=== PATIENT | female | born 1950 ===

== ENCOUNTER 2022-03-06 05:37 | Day surgery (SDC) | payer OTHER ==
[~2022-03-06 05:37] MED LIST: ASA81 MG PO; LOSARTAN POTASS25 MG PO
[2022-03-06] MEDS ORDERED: ZITHROMAX500 MG PO (09:08)
[2022-03-06] MEDS ORDERED: IBU400 MG PO (09:08)
== END 2022-03-06 13:10 | disposition home or self-care (01) ==
LOC: CIR.AMB 05:37
PROVIDERS: ATTEND Obstetrics & Gynecology
DX: N84.0 Polyp of corpus uteri (principal); N95.0 Postmenopausal bleeding; I10 Essential (primary) hypertension